=== PATIENT | female | born 1960 | race Caucasian/White ===

== ENCOUNTER 2024-02-09 15:18 | Emergency (ER) | payer OTHER ==
[~2024-02-09] VITALS: Ht 152.4 cm; Wt 64.9 kg
[2024-02-09 15:38] VITALS: BP 177/84; PULSE 72; RESP 17; TEMP 98.6; O2SAT 97
[2024-02-09] MEDS ORDERED: IBUP-2213 PO (17:02)
[2024-02-09] MEDS: KETOROLAC 30 MG/ML VIAL IM ONE (17:29)
== END 2024-02-09 17:45 | disposition home or self-care (01) ==
LOC: MED 15:18
DX: S93.502A Unspecified sprain of left great toe, initial encounter (principal); I10 Essential (primary) hypertension; E78.5 Hyperlipidemia, unspecified; Z79.899 Other long term (current) drug therapy; W18.40XA Slipping, tripping and stumbling without falling, unspecified, initial encounter; Y93.89 Activity, other specified; Y92.89 Other specified places as the place of occurrence of the external cause; Y99.8 Other external cause status
CPT/HCPCS: 73630; 96372; 99283; J1885